=== PATIENT | female | born 1995 ===

== ENCOUNTER 2017-05-02 01:35 | Emergency (ER) | payer MEDICAID ==
[2017-05-02 01:47] VITALS: BP 124/76
--- NOTE | 2017-05-02 02:07 | EDM.PDOC ---
ED HPI GENERAL MEDICAL PROBLEM - General Chief Complaint: Lower Extremity Injury/Pain Stated Complaint: CRPS NEEDS MEDS Time Seen by Provider: 05/02/17 01:56 - History of Present Illness INITIAL COMMENTS - FREE TEXT/NARRATIVE: 21-year-old female presents emergency room with left leg pain. Patient has a history of complex regional pain syndrome. She's had this for the last couple years the think it might have been related to a sciatic nerve injury that she sustained snowboarding. On occasion the patient gets severe pain on the anterior portion of her left knee. She uses Lidoderm patches for this however she is out of her Lidoderm patch. 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 She has not needed a patch in about 7 months. She 's had escalating pain in this area for about the last 3 days. Past medical history significant for what sounds like mitral valve prolapse, she has a leaky mitral valve. And she has the complex regional pain syndrome Left Knee Pain Score (Numeric/FACES): 8 - Related Data Allergies Allergy/AdvReac Type Severity Reaction Status Date / Time tramadol Allergy Seizure Verified 05/02/17 01:49 Home Meds: Home Meds Escitalopram [Lexapro] 15 mg PO DAILY 05/02/17 [History] Lidocaine 5% [Lidoderm 5%] 700 mg TOP DAILY PRN #5 patch 05/02/17 [Rx] Melatonin 5 mg PO BEDTIME 05/02/17 [History] Primidone 250 mg PO DAILY 05/02/17 [History] busPIRone [Buspar] 10 mg PO DAILY 05/02/17 [History] Past Medical History Cardiovascular History: Reports: Other (See Below) Other Cardiovascular History: mitral valve Musculoskeletal History: Reports: Other (See Below) Other Musculoskeletal History: chronic pain, CRPS. Siatic nerve tear - Past Surgical History HEENT Surgical History: Reports: Naso-Sinus Surgery Social & Family History - Tobacco Use Smoking Status *Q: Never Smoker - Recreational Drug Use Recreational Drug Use: No Review of Systems - Review of Systems Review Of Systems: See Below Constitutional: Reports: No Symptoms Respiratory: Reports: No Symptoms Cardiovascular: Reports: No Symptoms GI/Abdominal: Reports: No Symptoms ED EXAM, GENERAL - Physical Exam Exam: See Below Exam Limited By: No Limitations General Appearance: Alert, No Apparent Distress Respiratory/Chest: No Respiratory Distress, Lungs Clear, Normal Breath Sounds Cardiovascular: Regular Rate, Rhythm, No Edema, Systolic Murmur (2/6 holosystolic murmur heard best along the mid left sternal border) Extremities: Other (Examination of her left knee shows no acute erythema swelling or joint effusion. She has a healing abrasion lateral inferior knee that she sustained some time back while escaping from a skunk. There is no associated redness or swelling at this. She is advised not to put a Lidoderm over this area her pain is a little more medial.) Course - Vital Signs Last Recorded V/S: Last Vital Signs Temp 36.6 C 05/02/17 01:45 Pulse 66 05/02/17 01:45 Resp 16 05/02/17 01:45 BP 124/76 05/02/17 01:45 Pulse Ox 100 05/02/17 01:45 - Orders/Labs/Meds Meds: Medications Discontinued Medications Generic Name Dose Route Start Last Admin Trade Name Freq PRN Reason Stop Dose Admin Lidocaine 700 mg 05/02/17 02:13 05/02/17 02:22 Lidoderm 5% TOP 05/02/17 02:14 700 mg ONETIME ONE Administration Departure - Departure Time of Disposition: 02:21 Disposition: Home, Self-Care 01 Clinical Impression: Complex regional pain syndrome i of unspecified lower limb Qualifiers: Laterality: left - Discharge Information Prescriptions: Lidocaine 5% [Lidoderm 5%] 700 mg TOP DAILY PRN #5 patch PRN Reason: Pain Referrals: PCP,Not In Area [Primary Care Provider] - Forms: ED Department Discharge Additional Instructions: Return to the emergency room with any questions or problems worsening symptoms. You have been given a prescription for Lidoderm patches #5 use as needed for your complex regional pain syndrome. You may use 1 patch daily however do not leave it in place for longer than 12 hours. Follow-up with your regular physician when you get home next week.
[2017-05-02] MEDS ORDERED: Lidocaine 5% 700 MG Patch TOP ONE (02:13)
== END 2017-05-02 02:30 | disposition home or self-care (01) ==
LOC: JD.ED 01:35
DX: G90.522 Complex regional pain syndrome I of left lower limb (principal); Z88.5 Allergy status to narcotic agent; Z79.899 Other long term (current) drug therapy
CPT/HCPCS: 99283; A9270